=== PATIENT | male | born 1945 | race Caucasian/White ===

== ENCOUNTER 2017-03-10 10:00 | Inpatient (IN) | payer MEDICARE, OTHER ==
[~2017-03-10] VITALS: Ht 188 cm; Wt 123.7 kg
--- NOTE | ~2017-03-10 | OR ---
PATIENT'S NAME: BART GRANT [facility] AGE: 72 Y [address] ROOM: [address] [address] LOCATION: GPCU ADMIT DATE: 03/13/2017 OR/Procedure Report DISCHARGE DATE: FAMILY PHYSICIAN: Eddie Trammell MD ATTENDING PHYSICIAN: HAIR ANDERSON SURGEON: Hair Anderson MD CLIENT RENEWAL SPECIALIST: DATE OF PROCEDURE: 03/13/2017 PREOPERATIVE DIAGNOSIS: Symptomatic right carotid artery stenosis. POSTOPERATIVE DIAGNOSIS: Symptomatic right carotid artery stenosis. PROCEDURE: Right carotid endarterectomy with bovine pericardial patch. MANAGER OCCUPATIONAL: LORRIE Alvarado. ANESTHESIA: General. ESTIMATED BLOOD LOSS: 350 mL. OPERATIVE FINDINGS: High-grade plaque with ulceration, neurologically intact at the end of case. DESCRIPTION OF PROCEDURE: The patient was brought to the operating room, placed supine on the operating table, placed under general anesthesia, prepped and draped in a sterile manner, had placement of arterial line as well as Fernandez catheter. Received preoperative antibiotics. We made a standard incision along the anterior border of the sternocleidomastoid muscle and dissected down through the platysma. We dissected down the soft areolar tissue along the anterior border of the sternocleidomastoid muscle, dissected out the internal jugular vein, identified the facial vein which was ligated and transected. We dissected of the common internal and external carotid artery. We gave 5000 units of heparin and waited 3 minutes. We clamped on all 3 major arteries. We placed a clip on the superior thyroid, which was removed at the end of case and made arteriotomy on the common with an 11 blade and extended onto the internal carotid using Biggs scissors. We then passed a 5 x 3 shunt and flow was confirmed with use of Doppler. We then removed the plaque in its entirety completing the endarterectomy orifice of the externa, which was probed with a tonsil clamp to remove any further debris. We then meticulously inspected the wall of the carotid artery to remove any further debris. We then did a standard bovine pericardial patch using two running 6-0 Wheelwright sutures. Before completing the patch, we clamped and removed the shunt. We allowed for backbleeding through the interna as well as flushing through the common. We then flushed with heparinized saline. We then completed PATIENT'S NAME: BART GRANT [facility] AGE: 72 Y [address] ROOM: [place] [address] [facility] ADMIT DATE: 03/13/2017 OR/Procedure Report DISCHARGE DATE: FAMILY PHYSICIAN: Eddie Trammell MD ATTENDING PHYSICIAN: HAIR ANDERSON anastomosis, removed the clamp from the external, as well as the common as well as a clip from the superior thyroid and then waited 10 heartbeats and removed the clamp from the internal. Any bleeding edges were repaired with interrupted 6-0 Prolene sutures. Heparin was reversed with use of protamine and flow was confirmed in all 3 vessels using Doppler. Two layers were closed with 2-0 and 3-0 Vicryl's. Thrombin was used locally in the wound for hemostasis. Skin was closed with running 4-0 Monocryl. The patient tolerated the procedure well and was transferred to recovery room and then up to the floor. HAIR ANDERSON MD FKM/modl /[id number] d: 03/13/17 2353 t: 03/14/17 1229, OPERATIVE SUMMARY
--- NOTE | ~2017-03-10 | CON ---
PATIENT'S NAME: BART MONTEMAYOR [facility] AGE: 72 Y [address] ROOM: [place] [address] LOCATION: GPCU ADMIT DATE: 03/13/2017 Consultation DISCHARGE DATE: FAMILY PHYSICIAN: Eddie Trammell MD ATTENDING PHYSICIAN: SALLY ANDERSON DATE OF CONSULTATION: 03/13/2017 CHIEF COMPLAINT/REASON FOR CONSULTATION: Medical management in the setting of carotid endarterectomy. HISTORY OF PRESENTING ILLNESS: This 72-year-old white male with previous history of hypertension and recurrent stroke was admitted to [facility] today for elective carotid endarterectomy under the direction of Dr. Anderson. Mr. Montemayor had recently been hospitalized in [place] with symptoms of dysarthria. He had 2 previous episodes of TIA. He did receive tPA administration and tolerated it well and was cared for at the [place] [facility]. He states his symptoms have completely resolved. Subsequently, he underwent carotid imaging studies and was referred to Dr. Anderson. He was recommended to undergo right carotid endarterectomy due to high-grade right internal carotid artery stenosis. Postoperatively, he is doing well. He complains of feeling tired primarily. He denies headache, dizziness, or lightheadedness. No chest pain, shortness of breath, or abdominal pain. He reports that he has been generally well otherwise in the last few days. He denies congestion or cough. No abdominal pain. He eats and drinks normally. No difficulties with chewing or swallowing. He stools and voids normally. Denies numbness or tingling in his extremities or any other associated physical or constitutional complaints. ALLERGIES: NO KNOWN DRUG ALLERGIES. ILLNESSES: 1. Essential hypertension. 2. Peripheral arterial disease. 3. Hyperlipidemia. 4. Osteoarthritis, generalized. 5. Acne rosacea. 6. Gastroesophageal reflux disease. 7. Erectile dysfunction. CURRENT MEDICATIONS: PATIENT'S NAME: BART MONTEMAYOR [facility] AGE: 72 Y [address] ROOM: [place] [address] LOCATION: GPCU ADMIT DATE: 03/13/2017 Consultation DISCHARGE DATE: FAMILY PHYSICIAN: Eddie Trammell MD ATTENDING PHYSICIAN: SALLY ANDERSON 1. Aspirin 325 mg p.o. daily. 2. Colace 100 mg p.o. daily p.r.n. 3. Doxycycline 100 mg p.o. daily. 4. Flonase nasal spray 2 sprays each nostril daily. 5. Ginkgo biloba 500 mg p.o. daily. 6. Glucosamine and chondroitin 1 tablet p.o. b.i.d. 7. Lactobacillus 2 tablets p.o. b.i.d. 8. Lisinopril and HCT 20/12.5 one tab p.o. daily. 9. Multivitamin daily. 10. Naproxen 250 mg p.o. daily p.r.n. 11. Advanced Eye Health 1 tablet p.o. daily. 12. Protonix 40 mg p.o. daily. 13. Viagra 100 mg p.o. daily p.r.n. 14. Simvastatin 20 mg half tablet p.o. q.h.s. 15. PreserVision daily. FAMILY HISTORY: Significant for stroke in his mother. SOCIAL HISTORY: He is and lives in [place]. He has a distant past history of smoking tobacco, but he has been quit since 1972. Less than 10 pack years. No significant alcohol use. REVIEW OF SYSTEMS: As per HPI. All other organ systems were reviewed and are negative. OBJECTIVE: VITAL SIGNS: Temperature 99, pulse 52, respirations 10, blood pressure 149/80, O2 saturation 95% on 4 L per nasal cannula. GENERAL: He is very pleasant, cooperative, lying in bed, in no acute distress. SKIN: Supple, pink, warm, and dry. No obvious rashes. HEENT: Otherwise, normocephalic. Sclerae nonicteric. Pupils equal, round, and reactive to light and accommodation. Extraocular movements appear intact. Nasal turbinates normal in appearance. Oropharynx clear. Mucous membranes are pink and moist. NECK: Supple. The wound overlying the right neck is clean and intact. CHEST: Chest wall is symmetrical. HEART: Regular without murmurs. LUNGS: Clear bilaterally. No wheezes or crackles heard. ABDOMEN: Soft, mildly obese. Bowel sounds are present. No masses or hepatosplenomegaly. and RECTAL: Not done. EXTREMITIES: Display no significant clubbing, cyanosis, or edema. PATIENT'S NAME: BART MONTEMAYOR [facility] AGE: 72 Y [address] ROOM: [address] [address] [facility] ADMIT DATE: 03/13/2017 Consultation DISCHARGE DATE: FAMILY PHYSICIAN: Eddie Trammell MD ATTENDING PHYSICIAN: SALLY ANDERSON NEUROLOGIC: Cranial nerves 2 through 12 appear grossly intact. Sensation appears normal. Strength is 5/5 bilaterally in upper and lower extremities. Gait is not observed. DTRs are 0 to 1+ symmetrical. LABORATORY AND X-RAY DATA: None available. ASSESSMENT AND PLAN: 1. Essential hypertension, adequately controlled. We will monitor the trend and make adjustments if necessary. 2. Acute hypoxic respiratory failure, secondary to hypoventilation. We will try to wean from analgesics and encourage good pulmonary hygiene. Expect resolution once he becomes more mobile. 3. Carotid artery stenosis, status post carotid endarterectomy. Stable. Adequate analgesia. We will continue with routine postoperative cares and clinical monitoring. 4. Osteoarthritis, generalized. Symptomatic measures. We will stop nonsteroidal anti-inflammatory drugs. 5. Gastroesophageal reflux disease. Continue with PPI therapy and monitor. 6. Deep venous thrombosis prophylaxis. We will follow the VTE protocol. MD ADELSO HARPER/trace /[id number] d: 03/13/17 2256 t: 03/14/17 0919, CONSULTATION REPORT
[2017-03-10] MEDS ORDERED: ECOTRIN325 MG PO (12:09)
[2017-03-10] MEDS ORDERED: COLACE100 MG PO (12:09)
[2017-03-10] MEDS ORDERED: DOXYCYCLINE MO100 MG PO (12:10)
[2017-03-10] MEDS ORDERED: FLONASE 50 MCG/16 GM NOSE (12:12)
[2017-03-10] MEDS ORDERED: LISINOPRIL-HCT1 EAC2 PO (12:13)
[2017-03-10] MEDS ORDERED: HYDRODIURIL25 MG PO (12:13)
[2017-03-10] MEDS ORDERED: LACTINEX (FLORA1 TAB PO (12:14)
[2017-03-10] MEDS ORDERED: MULTI VITAMIN1 EACH PO (12:14)
[2017-03-10] MEDS ORDERED: PRESERVISION L1 EACH PO (12:16)
[2017-03-10] MEDS ORDERED: ADVANCED EYE H1 EACH PO (12:18)
[2017-03-10] MEDS ORDERED: NAPROSYN500 MG PO (12:19)
[2017-03-10] MEDS ORDERED: ZOCOR20 MG PO (12:20)
[2017-03-10] MEDS ORDERED: PROTONIX40 MG PO (12:20)
[2017-03-10] MEDS ORDERED: VIAGRA100 MG PO (12:22)
[2017-03-10] MEDS ORDERED: GLUCOSAMINE-CH1 EA23 PO (12:23)
[2017-03-10] MEDS ORDERED: GINKGO BILOBA500 MG PO (12:25)
--- NOTE | 2017-03-10 12:48 | NUR ---
PRE-OP ADMISSION NOTE: PATIENT IS 72 YO MALE PLANNING TO BE ADMITTED ON 03/13/17 FOR RIGHT CAROTID ENDARTERECTOMY. PATIENT RECENTLY HAD CVA ON 02/25/17. IS FROM [place]. WAS TAKEN FROM THERE TO [facility]. DR. ZAYAS WAS IN HOUSE THAT DAY, THE NEURO ASSESSMENT WAS DONE AND HE WAS GIVEN A "CLOT BUSTER" AND HE WAS ABLE TO STAY IN [facility] [place] STATES HE IS HAVING THE CAROTID ENDARTERECTOMY DUE TO THE LOCATION OF THE PLAQUE, EVEN THOUGH IT IS ONLY 35% OCCLUDED. STATES IT IS ON THE "BRANCHING" AREA AND IS A HIGHER RISK FOR CLOTS TO FORM. 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 EDUCATION IS GIVEN DOCUMENTED. PATIENT DENIES QUESTIONS AT THIS TIME. PRE-OP PHONE INSTRUCTIONS/EDUCATION COMPLETED AT THIS TIME.
--- NOTE | 2017-03-13 17:49 | NUR ---
Significant Event: A/O X 3. DENIES HEADACHE, DIZZYNESS, SHORTNESS OF BREATH, NO NUMBNESS/TINGLING OF EXT. X4. LT. NECK WITH DRESSING: C/D/I. DOPPLED PEDAL PULSES +. JEY. NECK CIRC. 49 CM. ARTERIAL LINE LT. WRIST: WITH HEPARIN/IV FLUIDS. FAMILY AT BEDSIDE. Follow up: CONT. TO [facility] POST CEA .
[2017-03-14 06:12] LABS: BASOPHIL % 0.3 %; BLOOD UREA NITROGEN 12 mg/dL (6-24); CALCIUM 8.8 mg/dL (8.5-10.5); CHLORIDE 106 mMol/L (96-110); CO2 27 mMol/L (22-32); EOSINOPHIL # 0.1 K/uL (0.0-0.5); EOSINOPHIL % 0.5 %; ESTIMATED GFR (MDRD EQUATION) > 60; HEMATOCRIT 38.1 % (37.0-53.0); HEMOGLOBIN 13.1 g/dL (11.0-16.0); IMMATURE GRANULOCYTE # 0.1 K/uL (0.0-0.3); IMMATURE GRANULOCYTE % 0.4 %; LYMPHOCYTE # 1.5 K/uL (0.8-4.0); LYMPHOCYTE % 13.1 %; MCHC 34.4 gm/dL (32.0-36.5); MONOCYTE # 1.2 K/uL (0.0-1.0); MONOCYTE % 10.5 %; MPV 9.7 fl (9.4-12.4); NEUTROPHIL # (ANC) 8.4 K/uL (1.4-9.0); NEUTROPHIL % 75.2 %; NRBC % 0 /100WBC (0-0.00); PHOSPHORUS 2.7 mg/dL (2.5-4.9); PLATELET COUNT 216 K/uL (150-450); RBC 3.97 M/uL (3.50-5.50); SODIUM 141 mMol/L (135-145); WBC 11.2 K/uL (4.0-11.0)
--- NOTE | 2017-03-14 07:48 | NUR ---
Significant Event: DENIES PAIN ALL NIGHT. DOES HAVE ISSUES SWALLOWING SOLID FOOD AT THIS TIME. WATER AND PUDDING HE HAS NO ISSUES WITH. NEURO CHECKS STABLE AND WNL ALL NIGHT. ATTEMPTED TO WEAN TO RA BUT SATS WERE IN THE UPPER 80s. RETURNED TO 1L PER NC. HR REMAINS DIANDRA IN THE 50s FOR MOST OF THE NIGHT. NECK CIRCUMFERENCE 46 CM ALL NIGHT. ART LINE CONTINUES ORDERED AND BP FAIRLY CLOSE TO THE CUFF PRESSURE. Follow up: HOME TODAY IF STABLE.
[2017-03-14] MEDS ORDERED: LIPITOR80 MG PO (13:23)
[2017-03-14] MEDS ORDERED: HYDROCODON-ACE1 EAC4 PO (13:25)
--- NOTE | 2017-03-14 16:10 | NUR ---
d- okroddy pt dc i-pt 02 sat 88-89 while asleep few seconds then goes back to low 90s dr parr op sleep study with regular dr, appt set up to see dr garduno, pt voids ok after donald dcd, left wrist normal with coban intact and pulse 2+ from art.line, R) neck incision approx.no swelling, 46cm, neuros negative, pt ambulates well no c/o dizziness up ribera, teaching done on carotidectomy, meds explained with new one told and page also, pt and son here with him and state understandings as have no questions, sl.tingle r)incision and r)hand as had at home, r-pt states understanding p-ta took pt out per wc
[2017-06-27] MEDS ORDERED: NITROSTAT0.4 MG SL (15:52)
[2017-06-27] MEDS ORDERED: IMDUR30 MG PO (15:52)
== END 2017-03-14 15:00 | disposition disaster alternative care site (69) | DRG 37 ==
LOC: GPCU 03-13 07:43
PROVIDERS: Family Medicine; ADMIT Surgery Vascular Surgery
PROC: 03CH0ZZ Extirpation of Matter from Right Common Carotid Artery, Open Approach (ICD-10-PCS; principal; 2017-03-13)
PROC: 03UH0JZ Supplement Right Common Carotid Artery with Synthetic Substitute, Open Approach (ICD-10-PCS; 2017-03-13)
DX: I65.21 Occlusion and stenosis of right carotid artery (principal); J96.01 Acute respiratory failure with hypoxia; E78.5 Hyperlipidemia, unspecified; I10 Essential (primary) hypertension; I73.9 Peripheral vascular disease, unspecified; K21.9 Gastro-esophageal reflux disease without esophagitis; N52.9 Male erectile dysfunction, unspecified; L71.9 Rosacea, unspecified; J30.9 Allergic rhinitis, unspecified; Z87.891 Personal history of nicotine dependence
CPT/HCPCS: C1751; J0690; J1100; J1644; J1650; J2405; J2720; J3480; J7050; J7120

== ENCOUNTER → 2017-06-26 | Outpatient (CLI) | payer MEDICARE, OTHER ==
[~2017-06-26] MED LIST: ADVANCED EYE H1 EACH PO; COLACE100 MG PO; DOXYCYCLINE MO100 MG PO; ECOTRIN325 MG PO; FLONASE 50 MCG/16 GM NOSE; GINKGO BILOBA500 MG PO; GLUCOSAMINE-CH1 EA23 PO; HYDROCODON-ACE1 EAC4 PO; HYDRODIURIL25 MG PO; IMDUR30 MG PO; LACTINEX (FLORA1 TAB PO; LIPITOR80 MG PO; LISINOPRIL-HCT1 EAC2 PO; MULTI VITAMIN1 EACH PO; NAPROSYN500 MG PO; NITROSTAT0.4 MG SL; PRESERVISION L1 EACH PO; PROTONIX40 MG PO; VIAGRA100 MG PO; ZOCOR20 MG PO
== END | disposition disaster alternative care site (69) ==
LOC: GRAD 15:49
DX: I71.2 Thoracic aortic aneurysm, without rupture (principal); I70.90 Unspecified atherosclerosis; J98.11 Atelectasis

== ENCOUNTER → 2017-06-26 | Outpatient (CLI) | payer MEDICARE, OTHER ==
--- NOTE | ~2017-06-26 | ESTC ---
Cardiac Perfusion Imaging Demographics Patient Name JUANITA Bianchi Gender Male Patient Number [id number] Race Visit Number [id number] Ethnicity Corporate ID Room Number Accession Number [id number] Height 74 inches Date of 1945 Weight 265 pounds Columba Kwan Date of study 06/26/2017 Physician Vee Supervising /SAILAJA NESS Technologist Natividad Baxter Ordering Physician [place] Stress Vee certified histologic technician Stress ECG Reading Wilmar Nurse Lico Ramirez Physician Vee Acuña Medications Reviewed with Patient prior to Procedure. Procedure Procedure Type: Nuclear Stress Test:Pharmacological, Lexiscan, Cardiolite Stress Test Procedure Start time: 06/26/2017 08:10 Indications: Fatigue. Risk Factors The patient risk factors include:cerebrovascular disease, former tobacco use, treated hypercholesterolemia, treated hypertension, family history of premature CAD and dyslipidemia. Conclusions Summary Stress SPECT images reveal a small sized area of moderate decreased isotope uptake involving the apex and small size mild decrease in uptake in the distal inferior wall of the left ventricle. . Compared to resting images, this perfusion abnormality is reversible. Gated SPECT imaging reveals normal thickening with normal wall motion. Overall left ventricular ejection fraction was calculated to be normal at 64%. Impression ECG portion of the stress test is clinically negative for ischemia by diagnostic criteria. Myocardial perfusion imaging is mildly abnormal. Images reveal a small sized area of moderate apical wall ischemia and mild distal inferior wall ischemia. Gated wall motion is normal with LVEF 64%. Stress Protocols Resting ECG Sinus rhythm, Poor R wave progression in anterior leads Pre-stress physical exam: Patient assessed by Dr Kwan prior to testing. Predicted HR: 150 bpm ECG Findings T wave abnormalies Arrhythmias No rhythm abnormality. Symptoms Abdominal discomfort Stress Interpretation Appropriate hemodynamic response to Lexiscan. T wave inversion in anterior leads with Lexiscan. No significant ST changes. ECG portion is negative for ischemia by diagnostic criteria. Imaging Results Applied corrections - Motion correction applied High risk findings Summed scores - Summed stress score: 3 - Summed rest score: 6 - Summed difference score: -3 Stress ejection Ejection fraction:63 % EDV :145 ml ESV :53 ml Stroke volume :92 ml LV mass :165 gr Imaging Protocols Rest Stress Isotope:Tc99m Sestamibi IV Isotope: Tc99m Sestamibi IV Isotope dose:15.2 mCi Isotope dose:47.1 mCi Date:06/26/2017 07:20 Date:06/26/2017 08:42 Technique: SPECT Technique: Gated Supine SPECT Supine Scan Time:45-60 minutes post Scan Time:45-60 minutes post injection injection Procedure Medications - Regadenoson (Lexiscan) 0.4 mg IV over 10-15 sec. I.V. 0.4 mg. Medications administered per verbal order and read back to physician prior to administration. Medical History Admission Data Admission date: 06/26/2017 Admission Time: 06:57 Hospital Status: Outpatient. Signatures dtt: VEE KWAN dtd: 06/26/17 0810 Physician Self Edit
== END | disposition disaster alternative care site (69) ==
LOC: GRAD 06:57
DX: R53.83 Other fatigue (principal); R93.1 Abnormal findings on diagnostic imaging of heart and coronary circulation; I25.9 Chronic ischemic heart disease, unspecified; E78.00 Pure hypercholesterolemia, unspecified; E78.5 Hyperlipidemia, unspecified; I10 Essential (primary) hypertension; I51.89 Other ill-defined heart diseases; Z87.891 Personal history of nicotine dependence; Z82.49 Family history of ischemic heart disease and other diseases of the circulatory system
CPT/HCPCS: A9500; J2785

== ENCOUNTER 2017-07-02 06:58 | Outpatient (CLI) | payer MEDICARE, OTHER ==
[~2017-07-02] VITALS: Ht 188 cm; Wt 115.9 kg
--- NOTE | ~2017-07-02 | CATH ---
Cardiac Diagnostic Report Demographics Patient Name JUANITA Bianchi Gender Male Date of 1945 Age 72 year(s) Patient Number [id number] Date of Study 07/02/2017 Visit Number [id number] Room Number G63[address] [place] [id number] Ht Wt 119 kg Accession Number [id number] BMI Referring Jp Eddie Yoder Primary Physician Physician Performing Yerrisiah Secondary Physician Physician Vee Diagnostic [place] Assisting Physician Physician Vee Interventional Physician Manga Artist Physician Findings and Conclusions Diagnostic Findings and Conclusion Left dominant L Main: no significant stenosis LAD: mid/distal 40% diffuse stenosis with bridging L Cx: Proximal 20% stenosis RCA: non dominant, no significant stenosis LVEDP 9 mm hg Diagnostic Recommendations medical therapy Procedure Description The patient was brought to the diagnostic cardiac catheterization-EP laboratory in the fasting, non-sedated state. Informed consent was obtained in the written and verbal form after the risks and benefits were explained. The patient had no further questions and agreed to proceed. The planned puncture-incision site(s) were shaved and prepped with ChloraPrep and draped in the usual sterile manner. Conscious sedation, supplemental oxygen, and pain control medications were delivered by a registered nurse under physician guidance. Surface ECG rhythm, blood pressure measurement, and pulse oximetry were monitored throughout the procedure. Arterial access. The right radial artery access site was infiltrated with lidocaine. The vessel was entered with the Seldinger technique. A sheath was advanced into the vessel and used for catheter placement. Selective left coronary angiography. A catheter was advanced into the left coronary vessel ostium under Fluoroscopic guidance. Contrast was injected by hand. Images were obtained in multiple projections. Selective right coronary angiography. A catheter was advanced into the right coronary vessel ostium under fluoroscopic guidance. Contrast was injected by hand. Images were obtained in multiple projections. Left heart catheterization. A catheter was advanced across the aortic valve to the left ventricle under fluoroscopic guidance. Resting hemodynamics were obtained. Arterial sheath was removed and hemostasis was achieved with TR band. The patient was transferred to a regular nursing floor via cart accompanied by a nurse. The patient left the laboratory in stable condition. Procedure Procedure Type Diagnostic procedure:Angiography:, Coronary Angios w/[facility] Indications: Abnormal cardiolyte. The procedure was explained in detail to the patient. Risks, complications and alternative treatments were reviewed. Written consent was obtained. Medications Reviewed with Patient prior to Procedure. Angiographic Findings Dominance: Right Cardiac Arteries and Lesion Findings LMCA: Normal (0% Stenosis). LAD: Abnormal.mid 30-40% diffuse diseease Lesion on Mid LAD: Mid subsection.30% stenosis . LCx: Abnormal.prox 20% Lesion on Prox CX: Proximal subsection.20% stenosis . RCA: Abnormal.ostial 205 Lesion on Prox RCA: Ostial.20% stenosis . Coronary Tree Procedure Data Procedure Date Date: 07/02/2017Start: 09:17 AMEnd: 09:44 AM Entry Locations - Retrograde Percutaneous access was performed through the Right Radial artery (Primary location). A 6 Fr sheath was inserted. Hemostasis was successfully obtained using Mechanical Compression. Closure Comments: 10 cc air in r band deployed by jamee. Procedure Medications Order and Administration + + + + + !Time !Medication !Dosage !Route ! + + + + + !07/02/2017 09:14 AM !Versed !1 mg !I.V. ! + + + + + !07/02/2017 09:15 AM !Fentanyl !50 mcg !I.V. ! + + + + + !07/02/2017 09:22 AM !Radial Nitroglycerin !200 mcg !I.A. ! + + + + + !07/02/2017 09:24 AM !Oxygen !2 l/min !NC ! + + + + + !07/02/2017 09:25 AM !Heparin (ACC_3) !5000 units !I.V. bolus ! + + + + + !07/02/2017 09:29 AM !Versed !1 mg !I.V. ! + + + + + !07/02/2017 09:32 AM !Fentanyl !50 mcg !I.V. ! + + + + + Devices Used - A5 Fr. BS JR 4 Diag. Catheterwas used for:Right coronary angiography. - A5 Fr. BS JL 3.5 Diag. Catheterwas used for:Left coronary angiography. Contrast Material - Isovue 23668 ml Fluoroscopy Time: Diagnostic: 3:54 minutes. Total: 3:54 minutes. Fluoroscopy Dose: Diagnostic: 762 mGy. Total: 762 mGy. Estimated Blood Loss: 10 ml. Medical History Performed Procedures and Imaging Results - Stress testing with SPECT MPIwas performed. Results were: Positive. Risk/Extent of ischemia was: Intermediate risk. Allergies - No known allergies. Risk Factors The patient risk factors include:peripheral arterial disease, cerebrovascular disease, physical activity, hypercholesterolemia, hypertension, family history of premature CAD, last creatinine: 1.2 mg/dl, creatinine clearance: 96.41 ml/min, dyslipidemia and former tobacco use. Admission Data Admission Date: 07/02/2017 Admission Time: 06:58 AM Admit Source: Other Insurance Payors: Medicare. Admission Medications + +------+------+ + + + + !Medication !Dosage!Times !Last !Last !Administered !Comments ! ! ! !Per !Delivery !Delivery ! ! ! ! ! !Day !Date !Time ! ! ! + +------+------+ + + + + !Aspirin ! ! ! ! ! ! ! !(any) ! ! ! ! ! ! ! + +------+------+ + + + + !AUGUSTO ! ! ! ! ! ! ! !Inhibitor ! ! ! ! ! ! ! !(any) ! ! ! ! ! ! ! + +------+------+ + + + + !Nitrates (iv! ! ! ! ! ! ! !or buccal) ! ! ! ! ! ! ! + +------+------+ + + + + !Statin (any)! ! ! ! ! ! ! + +------+------+ + + + + Clinical Evaluation Leading to Procedure - The patient's CAD presentation was assessed as: Unstable angina. 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 Anti-anginal medications were prescribed during the past two weeks. The medications are: Beta Blockers, Long Acting Nitrates and Other. VA Ventriculography Findings mild ischemia in distal inferior wall , and apex per stress LVEDP 9 Hemodynamics Condition: Rest Heart Rate: 65 bpm Pressures (mmHg) +-----+ + !Site !Pressure ! +-----+ + !LV !117/3 ,10 ! +-----+ + !LV !115/2 ,9 ! +-----+ + !AO !112/67 (87) ! +-----+ + !LV !114/2 ,9 ! +-----+ + !AO !119/66 (90) ! +-----+ + Valve Gradients and Areas + +---------+---------+---------+ +---------+ + !Valve !Peak !Mean !Area !Index !Flow !Source ! + +---------+---------+---------+ +---------+ + !Aortic !2 !0 ! ! ! ! ! + +---------+---------+---------+ +---------+ + !Aortic !2 !0 ! ! ! ! ! + +---------+---------+---------+ +---------+ + Shunts Oxygen Values O2 Capacity 198.56 Signatures dtt: VEE KWAN dtd: 07/02/17916 Physician Self Edit
[2017-07-02 07:31] LABS: BASOPHIL % 0.5 %; EOSINOPHIL # 0.4 K/uL (0.0-0.5); EOSINOPHIL % 5.3 %; HEMATOCRIT 41.4 % (37.0-53.0); HEMOGLOBIN 14.6 g/dL (11.0-16.0); IMMATURE GRANULOCYTE % 0.4 %; LYMPHOCYTE # 1.4 K/uL (0.8-4.0); LYMPHOCYTE % 17.4 %; MCH 33.6 pg (27.0-34.0); MCHC 35.3 gm/dL (32.0-36.5); MCV 95.2 fl (83.0-98.0); MONOCYTE # 1.2 K/uL (0.0-1.0); MPV 9.6 fl (9.4-12.4); NEUTROPHIL # (ANC) 5.1 K/uL (1.4-9.0); NEUTROPHIL % 61.4 %; NRBC % 0 /100WBC (0-0.00); PLATELET COUNT 227 K/uL (150-450); RBC 4.35 M/uL (3.50-5.50); RDW-CV 11.9 % (11.9-14.6); WBC 8.3 K/uL (4.0-11.0)
[2017-07-02 07:47] LABS: INR - (THERAPEUTIC) 0.95 (0.92-1.07)
[2017-07-02 07:58] LABS: ALBUMIN 3.6 gm/dL (3.5-5.0); ANION GAP 9.8 (10.0-19.0); CALCIUM 9.3 mg/dL (8.5-10.5); CREATININE 1.2 mg/dL (0.6-1.3); POTASSIUM 3.8 mMol/L (3.7-5.1); TOTAL BILIRUBIN 0.6 mg/dL (0.0-1.5); TOTAL PROTEIN 7.5 g/dL (6.0-8.4)
== END 2017-07-02 14:33 | disposition disaster alternative care site (69) ==
LOC: GPCU 06:58 → GCAT 06:58 → GPOC 07:00 → GCAT 14:33
PROVIDERS: Internal Medicine Interventional Cardiology
PROC: 4A023N7 Measurement of Cardiac Sampling and Pressure, Left Heart, Percutaneous Approach (ICD-10-PCS; principal; 2017-07-02)
PROC: B216YZZ Fluoroscopy of Right and Left Heart using Other Contrast (ICD-10-PCS; 2017-07-02)
DX: I25.110 Atherosclerotic heart disease of native coronary artery with unstable angina pectoris (principal); I44.4 Left anterior fascicular block; R94.31 Abnormal electrocardiogram [ECG] [EKG]
CPT/HCPCS: J1644; J2001; J2250; J3010; J7030